=== PATIENT | male | born 1940 | race Caucasian/White ===

== ENCOUNTER 2016-07-16 16:27 | Inpatient (IN) ==
[2016-07-17] MEDS ORDERED: Eucerin Cream 57 GM TUBE TP PRN (20:23)
[2016-07-17] MEDS ORDERED: (Diclofenac Sodium [Voltaren] 2 GM) TP PRN (20:23)
[2016-07-17] MEDS ORDERED: Acetaminophen 325 MG TABLET PO PRN (20:23)
[2016-07-17] MEDS ORDERED: Lidocaine 4% CREAM (LMX) 5 GM TP PRN (20:23)
[2016-07-17] MEDS ORDERED: Nitroglycerin 0.4 MG TAB.SUBL SL PRN (20:23)
[2016-07-17] MEDS ORDERED: Artificial Tears SOLN 15 ML BOTTLE BOTH EYES PRN (20:23)
[2016-07-17] MEDS ORDERED: Dextrose Gel 15 GM PO PRN ×5 (20:23→21:05)
[2016-07-17] MEDS ORDERED: Lacri-Lube 3.5 GM TUBE BOTH EYES PRN (20:23)
[2016-07-17] MEDS ORDERED: (Ketotifen Fumarate [Ketotifen Fumarate] 1 DROP) OP PRN (20:23)
[2016-07-17] MEDS ORDERED: D5% in Water 1,000 ML IV PRN ×3 (20:59→21:05)
[2016-07-17] MEDS ORDERED: *HR* Dextrose 50 % in Water (Syg) 50 ML SYRINGE IVP PRN ×2 (20:59→21:05)
[2016-07-17] MEDS ORDERED: Insulin LISPRO 300 UNITS/3 ML VIAL SQ SCH (21:00)
[2016-07-17] MEDS ORDERED: Insulin DETEMIR 100 UNIT/ML per UNIT SQ ONE (21:15)
[2016-07-17] MEDS: Pregabalin 75 MG CAPSULE PO SCH (21:31)
[2016-07-17] MEDS: Torsemide 20 MG TABLET PO SCH (21:32)
[2016-07-17] MEDS: *HR* Amiodarone 200 MG TABLET PO SCH (21:32)
[2016-07-17] MEDS: OMEGA PO SCH (21:33)
[2016-07-17] MEDS: FATTY ACIDS PO SCH (21:33)
[2016-07-18 05:25] LABS: Basophils % 0.4 %; Eosinophils # 0.4 K/mcL (0.0-0.6); Eosinophils % 3.8 %; Hematocrit 34.1 % (37.5-50.1); Hemoglobin 11.2 g/dL (12.9-16.9); Immature Granulocytes % 0.8 % (0-4); Lymphocytes # 3.1 K/mcL (0.6-4.6); Lymphocytes % 29.7 %; Mean Corpuscular HGB Conc 32.8 g/dL (31.6-35.5); Mean Corpuscular Hemoglobin 28.6 pg (28.0-33.3); Mean Corpuscular Volume 87.2 fL (83.0-100.0); Mean Platelet Volume 10.4 fL (9.4-12.4); Monocytes % 9.6 %; Neutrophils # 5.7 K/mcL (1.6-8.9); Platelet Count 468 K/mcL (140-400); Red Blood Count 3.91 M/mcL (4.19-5.50); Red Cell Distribution Width 15.9 % (11.5-14.5); Segmented Neutrophils % 55.7 %
[2016-07-18 05:29] LABS: INR 1.2; Prothrombin Time 13.4 Seconds (9.4-12.1)
[2016-07-18 05:32] LABS: Activated Partial Thrombo Time 31.7 Seconds (26.0-36.0)
[2016-07-18 05:38] LABS: BUN/Creatinine Ratio 22 (6-26); Blood Urea Nitrogen 25 mg/dL (8-26); Calcium 9.3 mg/dL (8.6-10.8); Carbon Dioxide 27 mEq/L (19-29); Chloride 100 mEq/L (98-109); Glucose 105 mg/dL (70-99); Osmolality,Calculated 297 (280-300); Potassium 3.4 mEq/L (3.5-4.5); Sodium 141 mEq/L (136-145); eGFR For African Americans > 60 (> 60); eGFR For Non-African Americans > 60 (> 60)
[2016-07-18] MEDS: *HR* OxyCODONE/APAP 5/325 TABLET PO PRN ×2 (05:52→10:38)
[2016-07-18] MEDS: Insulin LISPRO 300 UNITS/3 ML VIAL SQ SCH ×2 (07:58→12:54)
[2016-07-18] MEDS ORDERED: Insulin LISPRO 300 UNITS/3 ML VIAL SQ SCH (08:00)
[2016-07-18] MEDS ORDERED: Spironolactone 25 MG TABLET PO SCH (09:00)
[2016-07-18] MEDS ORDERED: (Olodaterol Hcl [Striverdi Respimat] 2 PUFF) IH SCH (09:00)
[2016-07-18] MEDS ORDERED: Aspirin 81 MG TAB.CHEW PO SCH (09:00)
[2016-07-18] MEDS ORDERED: Insulin DETEMIR 100 UNIT/ML X5UNITS SQ SCH (09:00)
[2016-07-18] MEDS ORDERED: Cholecalciferol (D-3) 1,000 UNIT TABLET PO SCH (09:00)
[2016-07-18] MEDS ORDERED: *HR* Digoxin 0.125 MG TABLET PO SCH (09:00)
[2016-07-18] MEDS ORDERED: Tiotropium 18 MCG inhalation IH SCH (09:00)
[2016-07-18] MEDS ORDERED: CALCIUM CITRATE 400 MG PO SCH (09:00)
[2016-07-18] MEDS: Torsemide 20 MG TABLET PO SCH (09:45)
[2016-07-18] MEDS: *HR* Amiodarone 200 MG TABLET PO SCH (09:46)
[2016-07-18] MEDS: Pregabalin 75 MG CAPSULE PO SCH (09:46)
[2016-07-18] MEDS: FATTY ACIDS PO SCH (09:47)
[2016-07-18] MEDS: OMEGA PO SCH (09:47)
[2016-07-18 11:41] VITALS: BP 117/70
--- NOTE | 2016-07-18 11:51 | Internal Med History&Physical ---
Date of Encounter: 07/18/16 Time of Encounter: 11:46 Internal Medicine - H&P: HPI Chief complaint: Patient was admitted to the acute care facility at [facility] from the MD after Admitted From: Hospital to Hospital Transfer Plans for Post Hospital Care: Home History of present illness: Mr. Zuniga is a 76 year old male Seen his medications definitely makes me think about polypharmacy. X-ray of his shoulder said possible small nondisplaced radial head fracture. 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 Past Med Surg Social Fam HX - Past Medical History Medical history: arthritis, atrial fibrillation, CHF, COPD, diabetes, hyperlipidemia, hypertension, myocardial infarction, RA, syncope Psychiatric history: no psych history - Past Surgical History Surgical History: pacemaker/AICD, other - Social History Smoking Status: Former smoker Smokeless Tobacco Status: No Alcohol use: none Drug use: none - Family History Mother History Unknown: Yes Adopted: No Family Member Ethnicity: Non- Living Status: Cause of : unknown Hx Family Cardiac Disorders: No (unknown) Hx Family Respiratory Disorders: No (unknown) Hx Family Cancer: No (unknown) Hx Family GI Disorders: No (unknown) Hx Family Genitourinary Disorders: No (unknown) Hx Family Endocrine Disorder: No (unknown) Hx Family Musculoskeletal Disorders: No (unknown) Hx Family Neuromuscular Disorders: No (unknown) Hx Family Neurologic Disorders: No (unknown) Hx Family HEENT Disorders: No (unknown) Hx Family Autoimmune Disorders: No (unknown) Hx Family Reproductive Disorders: No (unknown) Hx Family Psychosocial Disorders: No (unknown) Hx Family Medical Disorders: No (unknown) Internal Medicine - H&P: Meds Aspirin 1 mg PO DAILY 12/20/14 [History] Digoxin [Lanoxin] 0.125 mg PO DAILY 12/20/14 [History] Losartan [Cozaar] 25 mg PO DAILY 12/20/14 [History] Nitroglycerin [Nitrostat] 0.4 mg SL Q5M PRN 12/20/14 [History] [place]-3 Fatty Acids [Rome-3] 2,000 mg PO BID 12/20/14 [History] Potassium Chloride 10 meq PO DAILY 12/20/14 [History] Rivaroxaban [Xarelto] 15 mg PO DAILY 12/20/14 [History] Spironolactone 25 mg PO DAILY 12/20/14 [History] Terazosin HCl 1 mg PO HS 12/20/14 [History] Tiotropium [Spiriva] 18 mcg IH DAILY 12/20/14 [History] Acetaminophen [Tylenol] 650 mg PO TID PRN 07/12/16 [History] Albuterol Sulfate [Albuterol Inhaler] 2 puff IH Q6H PRN 07/12/16 [History] Allopurinol [Zyloprim 100 MG] 100 mg PO DAILY 07/12/16 [History] Calcium Citrate 400 mg PO DAILY 07/12/16 [History] Carboxymethylcellulose Sodium [Refresh Liquigel] 1 drop BOTH EYES QID PRN [History] Cholecalciferol (D-3) [Vitamin D] 2,000 unit PO DAILY 07/12/16 [History] Cyclobenzaprine [Flexeril] 10 mg PO TID PRN 07/12/16 [History] Dextrose [Glucose] 4 gm PO AD PRN 07/12/16 [History] Diclofenac Sodium [Voltaren] 2 gm TP BID PRN 07/12/16 [History] Ergocalciferol (VITAMIN D2) [Vitamin D2] 50,000 unit PO QWEEK 07/12/16 [History] Etanercept [Enbrel] 50 mg SQ QWEEK 07/12/16 [History] Eucerin Creme 1 appl TP DAILY PRN 07/12/16 [History] Hydroxychloroquine [Plaquenuil] 200 mg PO BID 07/12/16 [History] Insulin ASPART [NovoLOG] 25 unit SQ TIDWM 07/12/16 [History] Insulin Glargine,Hum.rec.anlog [Lantus Solostar] 55 unit SQ BID 07/12/16 [ History] Ketotifen Fumarate 1 drop BOTH EYES BID PRN 07/12/16 [History] Lidocaine 4% CRM (LMX) [Lmx 4] 1 appl TP BID PRN 07/12/16 [History] Metformin HCl [Fortamet] 1,000 mg PO QPM 07/12/16 [History] Metolazone [Zaroxolyn] 2.5 mg PO 3XW 07/12/16 [History] Mineral Oil/Petrolatum,White [Refresh P.m. Ointment] 1 appl BOTH EYES HS PRN [History] Olodaterol HCl [Striverdi Respimat] 2 puff IH DAILY 07/12/16 [History] Omeprazole [PriLOSEC] 20 mg PO DAILY 07/12/16 [History] Pregabalin [Lyrica] 75 mg PO BID 07/12/16 [History] Probenecid [Benemid] 500 mg PO BID 07/12/16 [History] Simvastatin [Zocor] 10 mg PO QPM 07/12/16 [History] Torsemide [Demadex] 40 mg PO BID 07/12/16 [History] Amiodarone [Cordarone] 400 mg PO BID #60 tablet 07/16/16 [Rx] Carvedilol [Coreg] 6.25 mg PO BIDWM #60 tablet 07/16/16 [Rx] OxyCODONE/APAP 5/325 [Percocet 5/325 MG] 1 each PO Q4HR PRN #12 tablet 07/16/16 [Rx] Allergies codeine Adverse Reaction (Unknown, Verified 09/29/15 10:10) See Comments unknown reaction atorvastatin [From Lipitor] Adverse Reaction (Verified 07/12/16 16:47) See Comments [facility] list lisinopril Adverse Reaction (Verified 09/29/15 10:10) Cough pravastatin Adverse Reaction (Verified 07/12/16 16:47) See Comments [facility] list rosuvastatin [From Crestor] Adverse Reaction (Verified 09/29/15 10:10) See Comments causes kidney stones All Systems PM: A 10-system review of systems was performed and is negative for pertinent findings except as documented above in the HPI. - Constitutional Vitals: Temp Pulse Resp BP Pulse Ox 97.0 F L 76 17 117/70 92 L 07/18/16 11:40 07/18/16 11:40 07/18/16 11:40 07/18/16 11:40 07/18/16 11:40 - Head Head exam: Present: atraumatic, normal inspection, normocephalic - Neck Neck exam general surgery: Present: supple, trachea midline. Absent: lymphadenopathy - Respiratory Respiratory exam: Present: CTAB. Absent: accessory muscle use, rales, rhonchi, wheezes - Cardiovascular Cardiovascular exam: Present: RRR, +S1, +S2. Absent: diastolic murmur, gallop, rubs, systolic murmur - GI/Abdominal GI/Abdominal exam: Present: normal bowel sounds, soft, no peritoneal signs. Absent: distended, tenderness Internal Med - H&P Results - Labs CBC & Chem 7: 07/18/16 04:40 07/18/16 04:40 Labs: Short CBC 07/18/16 Range/Units 04:40 WBC 10.3 (4.3-11.1) K/mcL Hgb 11.2 L (12.9-16.9) g/dL Hct 34.1 L (37.5-50.1) % Plt Count 468 H (140-400) K/mcL Neutrophils # 5.7 (1.6-8.9) K/mcL BMP 07/18/16 04:40 Sodium 141 Potassium 3.4 L Chloride 100 Carbon Dioxide 27 BUN 25 Creatinine 1.15 Glucose 105 H Calcium 9.3 Labs okay to watch the potassium.
--- NOTE | 2016-07-18 13:21 | Discharge Summary ---
Date of Encounter: 07/18/16 Time of Encounter: 13:18 - Discharge Diagnosis (1) Acute exacerbation of chronic obstructive airways disease Priority: Secondary Status: Acute Comments: Patient's respirations are safe and quiet. Not short of breath and he is breathing room air (2) CKD (chronic kidney disease) stage 3, GFR 30-59 ml/min Priority: Secondary Status: Acute Comments: Noted chronic changes (3) Elevated troponin Priority: Primary Status: Acute Comments: No evidence of acute [place] EKG showed no change (4) Systolic CHF, acute on chronic Priority: Primary Status: Acute Comments: Chest x-ray showed pulmonary vascular congestion (5) Ventricular fibrillation Priority: Secondary Status: Acute Comments: Patient has a pacemaker had a brief episode of V. fib which the pacemaker did not discharge. No recurrent problems - Discharge Medications Home Medications: Aspirin 1 mg PO DAILY 12/20/14 [History] Digoxin [Lanoxin] 0.125 mg PO DAILY 12/20/14 [History] Losartan [Cozaar] 25 mg PO DAILY 12/20/14 [History] Nitroglycerin [Nitrostat] 0.4 mg SL Q5M PRN 12/20/14 [History] [place]-3 Fatty Acids [[place]-3] 2,000 mg PO BID 12/20/14 [History] Potassium Chloride 10 meq PO DAILY 12/20/14 [History] Rivaroxaban [Xarelto] 15 mg PO DAILY 12/20/14 [History] Spironolactone 25 mg PO DAILY 12/20/14 [History] Terazosin HCl 1 mg PO HS 12/20/14 [History] Tiotropium [Spiriva] 18 mcg IH DAILY 12/20/14 [History] Acetaminophen [Tylenol] 650 mg PO TID PRN 07/12/16 [History] Albuterol Sulfate [Albuterol Inhaler] 2 puff IH Q6H PRN 07/12/16 [History] Allopurinol [Zyloprim 100 MG] 100 mg PO DAILY 07/12/16 [History] Calcium Citrate 400 mg PO DAILY 07/12/16 [History] Carboxymethylcellulose Sodium [Refresh Liquigel] 1 drop BOTH EYES QID PRN [History] Cholecalciferol (D-3) [Vitamin D] 2,000 unit PO DAILY 07/12/16 [History] Cyclobenzaprine [Flexeril] 10 mg PO TID PRN 07/12/16 [History] Dextrose [Glucose] 4 gm PO AD PRN 07/12/16 [History] Diclofenac Sodium [Voltaren] 2 gm TP BID PRN 07/12/16 [History] Ergocalciferol (VITAMIN D2) [Vitamin D2] 50,000 unit PO QWEEK 07/12/16 [History] Etanercept [Enbrel] 50 mg SQ QWEEK 07/12/16 [History] Eucerin Creme 1 appl TP DAILY PRN 07/12/16 [History] Hydroxychloroquine [Plaquenuil] 200 mg PO BID 07/12/16 [History] Insulin ASPART [NovoLOG] 25 unit SQ TIDWM 07/12/16 [History] Insulin Glargine,Hum.rec.anlog [Lantus Solostar] 55 unit SQ BID 07/12/16 [ History] Ketotifen Fumarate 1 drop BOTH EYES BID PRN 07/12/16 [History] Lidocaine 4% CRM (LMX) [Lmx 4] 1 appl TP BID PRN 07/12/16 [History] Metformin HCl [Fortamet] 1,000 mg PO QPM 07/12/16 [History] Metolazone [Zaroxolyn] 2.5 mg PO 3XW 07/12/16 [History] Mineral Oil/Petrolatum,White [Refresh P.m. Ointment] 1 appl BOTH EYES HS PRN [History] Olodaterol HCl [Striverdi Respimat] 2 puff IH DAILY 07/12/16 [History] Omeprazole [PriLOSEC] 20 mg PO DAILY 07/12/16 [History] Pregabalin [Lyrica] 75 mg PO BID 07/12/16 [History] Probenecid [Benemid] 500 mg PO BID 07/12/16 [History] Simvastatin [Zocor] 10 mg PO QPM 07/12/16 [History] Torsemide [Demadex] 40 mg PO BID 07/12/16 [History] Amiodarone [Cordarone] 400 mg PO BID #60 tablet 07/16/16 [Rx] Carvedilol [Coreg] 6.25 mg PO BIDWM #60 tablet 07/16/16 [Rx] OxyCODONE/APAP 5/325 [Percocet 5/325 MG] 1 each PO Q4HR PRN #12 tablet 07/16/16 [Rx] Allergies/Adverse Reactions: Allergies codeine Adverse Reaction (Unknown, Verified 09/29/15 10:10) See Comments unknown reaction atorvastatin [From Lipitor] Adverse Reaction (Verified 07/12/16 16:47) See Comments va list lisinopril Adverse Reaction (Verified 09/29/15 10:10) Cough pravastatin Adverse Reaction (Verified 07/12/16 16:47) See Comments va list rosuvastatin [From Crestor] Adverse Reaction (Verified 09/29/15 10:10) See Comments causes kidney stones Date of admission: 07/17/16 18:36 [facility] physician: [facility] Consults: 07/17/16 20:11 Consult to Occupational Therapy [CONS] Routine Comment: Evaluate, develop and implement POC Consult to Physical Therapy [CONS] Routine Comment: Evaluate, develop and implement POC Consult to Recreational Therapy [CONS] Routine Comment: Evaluate, develop and implement POC Consult to Wall Attendant [CONS] Routine Reason for SW Consult: eval and treat, discharge planning, appointment follow up planning Discharging clinician: Jesús Ragland Anticipated date of discharge: 07/18/16 - Patient Status Disposition: Home, Self-Care Condition: Good Functional capacity at discharge: uses cane/walker Overall status at discharge: patient is progressing back to baseline - Discharge Instructions Follow Up With: [facility] [Primary Care Provider] - - Diet and Activity Activity: increase activity as tolerated Diet: advance to your usual diet Interval History: Patient was sent after some problems recently in the acute care facility for rehabilitation but he is stable walking and exceeding expectations Hospital course: Mr. Zuniga is a 76 year old male Patient has done so well that he will be discharged home with family today - Time Spent with Patient Total time spent providing and/or coordinating discharge services: Less than 30 minutes - Constitutional Vitals: Temp Pulse Resp BP Pulse Ox 97.0 F L 76 17 117/70 92 L 07/18/16 11:40 07/18/16 11:40 07/18/16 11:40 07/18/16 11:40 07/18/16 11:40 - Head Head exam: Present: atraumatic, normal inspection, normocephalic - Neck Neck exam general surgery: Present: supple, trachea midline. Absent: lymphadenopathy - Respiratory Respiratory exam: Present: CTAB. Absent: accessory muscle use, rales, rhonchi, wheezes - Cardiovascular Cardiovascular exam: Present: RRR, +S1, +S2. Absent: diastolic murmur, gallop, rubs, systolic murmur - GI/Abdominal GI/Abdominal exam: Present: normal bowel sounds, soft, no peritoneal signs. Absent: distended, tenderness
[2016-07-18] MEDS ORDERED: *HR* Rivaroxaban 15 MG TABLET PO SCH (17:00)
[2016-07-18] MEDS ORDERED: *HR* Metformin 500 MG TABLET PO SCH (18:00)
[2016-07-22] MEDS ORDERED: (Etanercept [Enbrel] 50 MG) SQ SCH (09:00)
== END 2016-07-18 15:15 | disposition home or self-care (01) | DRG 947 ==
LOC: INPGRE 07-17 18:36
PROVIDERS: ADMIT Internal Medicine; ATTEND Internal Medicine